=== PATIENT | female | born 1950 | race Caucasian/White ===

== ENCOUNTER 2016-07-01 10:03 | Emergency (ER) | payer MEDICARE ==
[2016-07-01 10:38] LABS: BASOPHILS 0.5 % (0-2); HEMOGLOBIN 13.8 g/dL (12-16); IMMATURE GRANULOCYTES 0.3 % (0-5); LYMPHOCYTES 15.9 % (15-50); MCH 33.7 pg (26.0-34.0); MCHC 33.7 g/dL (31.0-37.0); MCV 100.2 fL (80.0-100.0); MONOCYTES 7.2 % (2-11); NEUTROPHILS 75.1 % (40-80); PLATELET COUNT 194 10x3/uL (130-400); RBC 4.09 10x6/uL (4.00-5.40); RDW 12.6 % (11.5-14.5); WBC 6.2 10x3/uL (4.8-10.8)
== END 2016-07-01 11:25 | disposition home or self-care (01) ==
LOC: D.ER 10:03
PROVIDERS: Emergency Medicine
DX: J20.9 Acute bronchitis, unspecified (principal)

== ENCOUNTER → 2020-07-06 10:26 | Outpatient (CLI) | payer MEDICARE | END | disposition home or self-care (01) | LOC: D.MRI 10:00 | PROVIDERS: ATTEND Orthopaedic Surgery | DX: M25.819 Other specified joint disorders, unspecified shoulder (principal) ==

== ENCOUNTER 2020-07-28 10:18 | Day surgery (SDC) | payer MEDICARE ==
[~2020-07-28] VITALS: Ht 160 cm; Wt 63.5 kg
--- NOTE | ~2020-07-28 | OP ---
PATIENT NAME: HARPREET HARTMANN MEDICAL RECORD: [id number] :48 LOCATION:[id number] ADMISSION DATE: SURGEON: GIANNI CARDENAS MD DATE OF OPERATION: 07/28/2020 PREOPERATIVE DIAGNOSES: 1. Left shoulder pain/impingement. 2. Rotator cuff tear. 3. Labral tear. POSTOPERATIVE DIAGNOSIS: 1. Left shoulder pain/impingement 2. Rotator cuff tear. 3. Labral tear. PROCEDURE PERFORMED: Left shoulder scope with SAD, DCE, limited glenohumeral debridement and mini open rotator cuff repair. INDICATIONS FOR THE PROCEDURE: Ms. Hartmann is a 69-year-old female who injured her shoulder a few weeks ago while moving a concrete block. When she turned to let the lock down, she felt pain in her shoulder. MRI showed evidence of a tear in the anterior rotator cuff. I talked with her about this condition and options for conservative versus surgical treatment. She has elected to proceed with surgery for operative repair. Risks, benefits and alternatives of surgery were discussed with the patient and consent was obtained. DESCRIPTION OF PROCEDURE: The patient was met in the holding area where her identity and confirmation of procedure was performed. The left upper extremity was marked. She was taken to the operating room where she was placed supine on the operating table and anesthesia was administered. She was then positioned in the right lateral decubitus position and extremities were positioned, padded appropriately. The left upper extremity was prepped and draped in a sterile fashion. The arm was placed into a stockinette and attached to skeletal traction. The patient received preoperative antibiotics and timeout was performed prior to initiating the case. On the initiation of the case, the subacromial space was infiltrated with 0.25% Marcaine with epinephrine. We then placed our posterior portal, inserted the camera and placed our anterior portal through the rotator cuff interval under direct visualization. Diagnostic shoulder arthroscopy was performed. There was significant inflammation throughout the shoulder. There was fraying of the superior and anterior labrum. There is a partial thickness tear at the undersurface of the anterior rotator cuff with retraction. The biceps tendon was intact. There was some wear at the superior edge of the humeral head as well as the central glenoid with grade II chondromalacia present. Given the amount of wear in the superior labrum, we elected to perform a biceps tenotomy. The tendon was transected at its base using a biter. A shaver was then used to debride the stump of the tendon as well as around the anterior labrum. The anterior rotator cuff was also debrided. Before and after images were obtained from our glenohumeral debridement. We then moved to the subacromial space. Again, there was significant inflammation and thickening of the bursa in the subacromial space. A lateral portal was placed. Subacromial decompression was performed using a shaver and cautery. A bur was used to smooth the undersurface of the acromion. We then performed a distal clavicle excision. There were significant degenerative changes at the distal clavicle as well. Cautery was used to isolate the distal clavicle and it was then burred down with our bur. Again, OPERATIVE REPORT [id number] HARPREET HARTMANN there was a partial thickness tearing of the rotator cuff. We therefore converted to a mini open procedure. Incision was made in line with our lateral portal and extended proximally and distally to allow for full visualization. I dissected down through the deltoid tendon and it was split longitudinally. The remainder of the bursal side of the tendon was released at the rotator cuff insertion and the footprint was prepared using the bur. A titanium anchor was then placed for medial row and the suture ends were brought up through our tendon using the SPEEDELO suture passer. These were then secured laterally with a ReelX knotless anchor. This was then covered with the [employer] attaching the tendon anchors and then the bone anchors for the patch. Final images were obtained. The shoulder was irrigated thoroughly with saline. The deltoid was closed with running Vicryl suture. The subcutaneous tissue was closed with Vicryl and the skin was closed with nylon. A sterile dressing was placed. The patient was turned back over to anesthesia where she was awakened and taken to the recovery room in stable condition. POSTOPERATIVE PLAN: The patient is going to return home with her family today. She needs to remain in the sling at all times with instructions for no shoulder range of motion. We will plan to see her back in clinic in 2 weeks. COMPLICATIONS: None. ESTIMATED BLOOD LOSS: 20 mL. ANESTHESIA: General. TRANSINT:[id number] Voice Confirmation ID: [id number] DOCUMENT ID: [id number] GIANNI CARDENAS MD CC: [id number] DICTATION DATE: 07/28/20 183 NEW CLIENT B[employer]ING SERVICES CLERK: 07/28/[id number] [facility] [address] [place], [facility]
[2020-07-28 10:50] LABS: EOSINOPHILS 3.3 % (0-7); HEMATOCRIT 41.5 % (36.0-48.0); HEMOGLOBIN 14.1 g/dL (12-16); LYMPHOCYTES 36.3 % (15-50); MCH 33.1 pg (26.0-34.0); MCHC 34.1 g/dL (31.0-37.0); MEAN PLATELET VOLUME 6.8 fL (7.4-10.4); MONOCYTES 7.6 % (2-11); NEUTROPHILS 51.8 % (40-80); RBC 4.28 10x6/uL (4.00-5.40); RDW 12.8 % (11.5-14.5); WBC 6.5 10x3/uL (4.8-10.8)
[2020-07-28 11:02] LABS: PLATELET COUNT 299 10x3/uL (130-400)
[2020-07-28] MEDS ORDERED: ARNUITY ELLIP200 MCG (11:53)
[2020-07-28 11:55] VITALS: BP 109/62; Ht 160 cm; Wt 63.5 kg
--- NOTE | 2020-07-28 18:38 | NUR ---
1819 PATIENT GIVEN 0.5MG DILAUDID IN PACU FOR PAIN CONTROL TOTALING 2MG OF DILAUDID BOTH INTRA AND POST OPERATIVELY. PATIENT REFUSED A REGIONAL BLOCK FOR PAIN CONTROL. WILL CONSULT ANESTHESIA IF PAIN BECOMES UNCONTROLLABLE DURING PHASE 1
--- NOTE | 2020-07-28 18:51 | NUR ---
PATIENT TRANSFERED TO OPD WITH PAIN LEVEL GREATER THAN 4 PER ANESTHESIA DIRECTION.
--- NOTE | 2020-07-28 19:05 | NUR ---
CALLED REPORT TO [facility] TO TRANSFER PT TO ROOM 2240, ALL QUESTIONS ANSWERED
--- NOTE | 2020-07-28 19:25 | NUR ---
PT TRANSFERRED VIA STRETCHER BY THIS NURSE AND MANJIT OVALLE. REVIEWED SHIFT REPORT WITH [address]. PT TRANSFERED TO ROOM 2240. ALL BELONGINGS WITH PT. SPOUSE IN ROOM.
--- NOTE | 2020-07-28 22:31 | NUR ---
EDUCATED PT ON DISCHARGE INSTRUCTIONS, FOLLOW UP APPOINTMENT AND MEDICATIONS. PT SIGNED PAPERWORK AND VERBALIZED UNDERSTANDING, REMOVED PIV FROM RIGHT FOREARM, CATH INTACT, NO REDNESS OR SWELLING. TRIAGE ASSISTANT ASSISTED PT WITH DRESSING. PT VOIDED AND MEETS DISCHARGE CRITERIA MET. ESCORTED PT TO ER ENTRANCE VIA WHEELCHAIR.
== END 2020-07-28 22:33 | disposition home or self-care (01) ==
LOC: D.OPS 10:18 → D.MS 19:12 → D.OPS 22:33
PROVIDERS: Anesthesiology; ATTEND Orthopaedic Surgery
DX: M25.512 Pain in left shoulder (principal); M75.42 Impingement syndrome of left shoulder; M75.122 Complete rotator cuff tear or rupture of left shoulder, not specified as traumatic; R06.2 Wheezing